=== PATIENT | female | born 1940 | race Caucasian/White ===

== ENCOUNTER 2022-02-04 11:08 | Day surgery (SDC) | payer MEDICARE, OTHER, MEDICAID ==
[2022-01-31 10:26] LABS: APTT 25 SECONDS (22-32)
[2022-01-31 10:32] LABS: BASOPHILS # (AUTO) 0.1 X10'3 (0-0.2); BASOPHILS % (AUTO) 1.1 % (0-1); EOSINOPHILS # (AUTO) 0.2 X10'3 (0-0.9); HEMATOCRIT 36.9 % (35.0-45.0); HEMOGLOBIN 12.2 g/dl (12.0-16.0); LYMPHOCYTES # (AUTO) 0.7 X10'3 (1.1-4.8); MEAN CORPUSCULAR HEMOGLOBIN 31.1 PG (27.0-31.0); MEAN CORPUSCULAR HGB CONC 32.9 g/dL (33.0-36.5); MEAN CORPUSCULAR VOLUME 94.5 FL (78-98); MEAN PLATELET VOLUME 7.7 FL (7.4-10.4); MONOCYTES # (AUTO) 0.4 X10'3 (0-0.9); MONOCYTES % (AUTO) 7.4 % (2-12); NEUTROPHILS # (AUTO) 4.6 X10'3 (1.8-7.7); NEUTROPHILS % (AUTO) 76.5 % (42-75); PLATELET COUNT 140 X10'3 (140-440); RED BLOOD COUNT 3.91 X10'6 (4.20-5.60); RED CELL DISTRIBUTION WIDTH 13.4 % (11.5-14.5)
[2022-01-31 10:35] LABS: GLUCOSE 80 MG/DL (70-104); SODIUM 144 MMOL/L (135-145)
[2022-01-31 10:36] LABS: ALBUMIN 3.6 G/DL (3.4-5.0); ANION GAP 9 (8-16); BLOOD UREA NITROGEN 14 MG/DL (7-18); CALCIUM 9.1 MG/DL (8.5-10.1); CHLORIDE 106 MMOL/L (99-107); CHOL/HDL RATIO 1.7 (0.00-4.99); CHOLESTEROL 215 MG/DL (0-200); CREATININE 0.61 MG/DL (0.40-0.90); HDL CHOLESTEROL 128 MG/DL (35-60); LDL CHOLESTEROL 58 MG/DL (50-100); POTASSIUM 4.1 MMOL/L (3.5-5.1); TOTAL CARBON DIOXIDE 28.6 MMOL/L (24-32); TRIGLYCERIDES 44 MG/DL (20-135); eGFR > 90 ML/MIN
[~2022-02-04] VITALS: Ht 144.8 cm; Wt 47.1 kg
[2022-02-04] VITALS (9 sets, daily range): BP systolic 112–148; BP diastolic 48–102
[~2022-02-04 11:08] MED LIST: AMLO10TA13 PO; APIX2.5T PO; BUDE10.22 PO; CEFU250T95 PO; CYAN100T47 PO; ERGO500093 PO; HYDR-3973 PO; MONT-40 PO; OMEP40CA21 PO; POTA-197 PO; PRED20TA PO; TIOT4MIS2 PO
[2022-02-04] MEDS ORDERED: LORazepam 0.5 MG tablet PO PRN (11:40)
[2022-02-04] MEDS ORDERED: LIDOcaine/PRILOcaine 5gm cream TP ONE (11:40)
[2022-02-04] MEDS ORDERED: normal saline 1,000 ML IV SCH (11:40)
[2022-02-04] MEDS ORDERED: diphenhydrAMINE 25mg capsule PO PRN (11:40)
[2022-02-04] MEDS ORDERED: verapamil 2.5 mg/ml inj IV ONE (11:54)
[2022-02-04] MEDS ORDERED: fentaNYL/PF 50MCG/1 ML 2ML syringe ONE (11:55)
[2022-02-04] MEDS ORDERED: midazolam 1 mg/ML 2ml injection ONE (11:55)
[2022-02-04] MEDS ORDERED: heparin 1,000unit/ml 10ml vial 10 ML ONE (11:55)
[2022-02-04] MEDS ORDERED: LIDOcaine 1% (10mg/ml) 2ml vial ONE (11:55)
[2022-02-04] MEDS ORDERED: iohexol 300mg/ml 100ml inj. ONE (11:56)
[2022-02-04] MEDS ORDERED: nitroGLYCERIN-Tridil 50MG/D5W 250 ML IV ONE (11:56)
[2022-02-04] MEDS ORDERED: VITA1TAB20 PO (12:14)
[2022-02-04] MEDS ORDERED: ROSU40TA22 PO (12:14)
[2022-02-04] MEDS ORDERED: CHOL20004 PO (12:14)
[2022-02-04] MEDS ORDERED: OMAL75SY (12:14)
[2022-02-04] MEDS ORDERED: BUDE3CAP8 PO (12:14)
[2022-02-04] MEDS ORDERED: DIPH25TA62 PO (12:23)
[2022-02-04] MEDS ORDERED: FOLI0.4T14 PO (12:23)
[2022-02-04] MEDS ORDERED: LORA-512 PO (12:23)
[2022-02-04] MEDS ORDERED: MULT-1085 PO (12:27)
[2022-02-04] MEDS ORDERED: ALB0.5UD NEB (12:27)
[2022-02-04] MEDS ORDERED: ALBU18HF2 INH (12:27)
[2022-02-04] MEDS ORDERED: OMEGA DHA (12:27)
[2022-02-04] MEDS ORDERED: LIDOcaine 1%/PF 5ML 10 MG/ML VIAL ONE ×2 (12:42)
[2022-02-04 13:43] LABS: ISTAT HGB ART 11.6 g/dl (12.0-16.0); ISTAT Hct ART 34 %PCV (35-48); ISTAT O2 SATURATION ARTERIAL 92 % (95-98); ISTAT SOURCE ART
[2022-02-04] MEDS ORDERED: HYDROcodone/acetaminophen 10/325mg tab PO PRN (15:00)
[2022-02-04] MEDS ORDERED: HYDROcodone/acetaminophen 5mg/325mg tablet PO PRN (15:00)
[2022-02-04] MEDS ORDERED: normal saline 1000ml 1,000 ML IV SCH (15:00)
[2022-02-04] MEDS ORDERED: ondansetron/PF 4mg/2ml inj IV PRN (15:00)
[2022-02-04 15:51] LABS: ISTAT Hct MIX 34 %PCV (35-48); ISTAT O2 SATURATION MIX VENOUS 68 % (60-80); ISTAT SOURCE VEN
== END 2022-02-04 18:05 | disposition home or self-care (01) ==
LOC: SSTAY O 11:08
PROVIDERS: ATTEND Internal Medicine Interventional Cardiology
DX: I25.10 Atherosclerotic heart disease of native coronary artery without angina pectoris (principal); I35.0 Nonrheumatic aortic (valve) stenosis; J44.9 Chronic obstructive pulmonary disease, unspecified; K21.9 Gastro-esophageal reflux disease without esophagitis; I73.9 Peripheral vascular disease, unspecified; K22.70 Barrett's esophagus without dysplasia; E78.5 Hyperlipidemia, unspecified; M81.0 Age-related osteoporosis without current pathological fracture; D50.9 Iron deficiency anemia, unspecified; Z87.11 Personal history of peptic ulcer disease; Z86.718 Personal history of other venous thrombosis and embolism; Z79.01 Long term (current) use of anticoagulants; Z79.899 Other long term (current) drug therapy; Z98.890 Other specified postprocedural states
CPT/HCPCS: 36415; 80048; 80061; 82803; 85014; 85025; 85610; 85730; 93005; 93456; A6258; C1751; C1769; C1894; J1644; J3490; J7030; Q9967; A4615; A4620; J2250; J3010

== ENCOUNTER 2022-04-03 11:06 | Outpatient (CLI) | payer MEDICARE, OTHER, MEDICAID ==
[~2022-04-03 11:06] MED LIST changes: +ALB0.5UD NEB; +ALBU18HF2 INH; +BUDE3CAP8 PO; -CEFU250T95 PO; +CHOL20004 PO; -CYAN100T47 PO; +DIPH25TA62 PO; -ERGO500093 PO; +FOLI0.4T14 PO; +LORA-512 PO; +MULT-1085 PO; +OMAL75SY; +OMEGA DHA; -POTA-197 PO; -PRED20TA PO; +ROSU40TA22 PO; +VITA1TAB20 PO
[2022-04-03 12:05] LABS: BASOPHILS % (AUTO) 0.5 % (0-1); EOSINOPHILS # (AUTO) 0.4 X10'3 (0-0.9); EOSINOPHILS % (AUTO) 4.2 % (0-6); HEMATOCRIT 33.8 % (35.0-45.0); HEMOGLOBIN 11.2 g/dl (12.0-16.0); LYMPHOCYTES # (AUTO) 1.2 X10'3 (1.1-4.8); LYMPHOCYTES % (AUTO) 12.7 % (21-51); MEAN CORPUSCULAR HGB CONC 33.1 g/dL (33.0-36.5); MEAN CORPUSCULAR VOLUME 93.7 FL (78-98); MEAN PLATELET VOLUME 7.6 FL (7.4-10.4); MONOCYTES # (AUTO) 0.6 X10'3 (0-0.9); MONOCYTES % (AUTO) 6.9 % (2-12); NEUTROPHILS % (AUTO) 75.7 % (42-75); PLATELET COUNT 219 X10'3 (140-440); RED BLOOD COUNT 3.61 X10'6 (4.20-5.60); RED CELL DISTRIBUTION WIDTH 14.1 % (11.5-14.5); WHITE BLOOD COUNT 9.3 X10'3 (4.5-11.0)
[2022-04-03 12:24] LABS: ALANINE AMINOTRANSFERASE 29 U/L (12-78); ALBUMIN 3.4 G/DL (3.4-5.0); ALBUMIN/GLOBULIN RATIO 0.9 (1.1-1.5); ALKALINE PHOSPHATASE 49 IU/L (46-116); ANION GAP 12 (8-16); ASPARTATE AMINO TRANSFERASE 24 U/L (10-37); BILIRUBIN,TOTAL 0.2 MG/DL (0.1-1.0); BLOOD UREA NITROGEN 10 MG/DL (7-18); BUN/CREATININE RATIO 17.5 (6.6-38.0); CALCIUM 9.4 MG/DL (8.5-10.1); CHLORIDE 106 MMOL/L (99-107); CREATININE 0.57 MG/DL (0.40-0.90); GLUCOSE 111 MG/DL (70-104); SODIUM 148 MMOL/L (135-145); TOTAL CARBON DIOXIDE 30.1 MMOL/L (24-32); TOTAL PROTEIN 7.3 G/DL (6.4-8.2); eGFR > 90 ML/MIN
[2022-04-03] MEDS ORDERED: IODIXANOL 320 MG/ML INFUS..BTL 100ML IV ONE ×2 (12:41→12:42)
[2022-04-03 13:37] LABS: APTT 20 SECONDS (22-32)
[2022-04-03] MEDS ORDERED: metoprolol tartrate 1mg/ml inj IV ONE (13:43)
== END 2022-04-03 23:59 | disposition home or self-care (01) ==
LOC: RAD 11:06
PROVIDERS: ATTEND Internal Medicine Cardiovascular Disease
DX: J98.11 Atelectasis (principal); I35.0 Nonrheumatic aortic (valve) stenosis; R06.02 Shortness of breath; I65.29 Occlusion and stenosis of unspecified carotid artery; I70.0 Atherosclerosis of aorta; M40.294 Other kyphosis, thoracic region; M47.814 Spondylosis without myelopathy or radiculopathy, thoracic region; M19.012 Primary osteoarthritis, left shoulder; M19.011 Primary osteoarthritis, right shoulder
CPT/HCPCS: 36415; 71046; 80053; 85025; 85610; 85730; 87811; J3490; Q9967; A4615

== ENCOUNTER 2022-04-17 09:39 | Outpatient (CLI) | payer MEDICARE, OTHER, MEDICAID ==
[~2022-04-17 09:39] MED LIST changes: +IODIXANOL 320 MG/ML INFUS..BTL 100ML IV ONE
[2022-04-17] MEDS ORDERED: metoprolol tartrate 1mg/ml inj IV ONE (10:29)
== END 2022-04-17 23:59 | disposition home or self-care (01) ==
LOC: RAD 09:39
PROVIDERS: ATTEND Internal Medicine Cardiovascular Disease
DX: K44.9 Diaphragmatic hernia without obstruction or gangrene (principal); J43.2 Centrilobular emphysema; J98.4 Other disorders of lung; I25.10 Atherosclerotic heart disease of native coronary artery without angina pectoris; I70.0 Atherosclerosis of aorta; K56.41 Fecal impaction; M43.17 Spondylolisthesis, lumbosacral region; M47.816 Spondylosis without myelopathy or radiculopathy, lumbar region; M43.8X4 Other specified deforming dorsopathies, thoracic region; Z96.643 Presence of artificial hip joint, bilateral; I35.0 Nonrheumatic aortic (valve) stenosis; R06.02 Shortness of breath; I65.29 Occlusion and stenosis of unspecified carotid artery
CPT/HCPCS: 71275; 74174; J3490; Q9967; A4615